=== PATIENT | female | born 1970 | race Asian ===

== ENCOUNTER → 2017-04-01 | Outpatient (CLI) | payer OTHER | LOC: CIMAGING 10:20 | PROVIDERS: ATTEND Obstetrics & Gynecology | DX: N88.8 Other specified noninflammatory disorders of cervix uteri (principal) | CPT/HCPCS: 76856-PO ==

== ENCOUNTER 2018-02-28 04:57 | Emergency (ER) | payer OTHER ==
--- NOTE | 2018-02-28 05:07 | EDPHY ---
H & P Source: Patient - Personal History Tetanus Vaccine Date: 01/03 - Medical/Surgical History Hx Asthma: No Hx Chronic Respiratory Disease: No Hx Diabetes: No Hx Cardiac Disease: No Hx Renal Disease: No Hx Cirrhosis: No Hx Alcoholism: No Hx HIV/AIDS: No Hx Splenectomy or Spleen Trauma: No Other PMH: Tonsillectomy age 3,Choleystasis of , IVF , Frequent Candiasis. - Family History Significant Family History: No pertinent family hx - Social History Smoking Status: Never smoked Alcohol Use: None Drug Use: None Time Seen by Provider: 02/28/18 05:06 HPI/ROS: CHIEF COMPLAINT: Epigastric spasms of pain radiating to the back. HISTORY OF PRESENT ILLNESS: Previously healthy 47-year-old female notes that she went to bed at 1:00 a.m.. She has had a bit of insomnia lay any that is why she went to bed so late. However nonetheless she did not feel quite well at the time. She noted a mild upper abdominal cramp and with some posterior back discomfort however, she was able to drift off to sleep after taking some melatonin. Next, she is awoke at 3:00 a.m. From a sound sleep with this sense of discomfort being markedly worse when she would characterizes the pain now at that point in time moderately severe. It would be equal in the front where it is feels more like a soft pain whereas in the back is more pressure feeling. It is like nothing she has ever had before. There was an associated alcaraz with nausea she vomited once or twice. There is no blood in the emesis. She also had a mild little bit of diarrhea of soft stool. Of note, no one else is ill. No bad foods. No recent travel outside the country last 2 months as well as no antibiotics. She does not drink alcohol The pain persisted aside taking some Pepto-Bismol with no relief. She recalls having a pain on March 2014 some 2 weeks at which time she did not have any back pain at that time. I reviewed the records from that ER visit and indeed she did have a negative of right upper quadrant ultrasound. REVIEW OF SYSTEMS: Constitutional: No fever, no chills. Eyes: No discharge and ENT: No sore throat. Cardiovascular: No chest pain, no palpitations. Respiratory: No cough, shortness of breath, or wheezing. Gastrointestinal: See above Genitourinary: No hematuria or frequency. Musculoskeletal: No back pain. Skin: No rashes. Neurological: No headache. A 10 system review of systems was performed and is negative except for the noted findings in the HPI. (Carl Garcia) - Physical Exam Exam: General Appearance: Alert, no distress. Afebrile. Normal phonation. No respiratory distress. Closes her eye is in pain as a spasm in [place] lasts for 10 sec. Eyes: Pupils equal and round no pallor or injection. No icterus ENT, Mouth: Mucous membranes slightly dry Pharynx without erythema or exudate. TM Clear. Neck: No adenopathy. Supple. No JVD. Trachea in midline. Respiratory: There are no retractions, lungs are clear to auscultation. Cardiovascular: Regular rate and rhythm. Abdomen: Soft though there is specific tenderness in the right upper quadrant with a Ji sign. There is diffuse tenderness to a mild degree in the left upper quadrant as well as left mid quadrant but even less so in the right mid quadrant. Neurological: Ox3. No motor weakness. Sensation intact. Gait nl. Skin: Warm and dry, no rashes. Musculoskeletal: No joint swelling. Extremities: No edema. Homans sign negative. No cords. Psychiatric: Normal affect. Patient is oriented X 3. There is no agitation ( Carl Garcia) Constitutional: Initial Vital Signs Temperature (C) 36.4 C 02/28/18 05:04 Heart Rate 66 02/28/18 05:04 Respiratory Rate 16 02/28/18 05:04 Blood Pressure 142/67 H 02/28/18 05:04 O2 Sat (%) 96 02/28/18 05:04 O2 Delivery Mode Room Air Allergies/Adverse Reactions: latex Allergy (Verified 02/28/18 05:56) Home Medications: Medication Instructions Recorded Dicyclomine [Bentyl 20 MG (*)] 20 mg PO QID PRN #30 tab 02/28/18 Medical Decision Making - Diagnostics Imaging Results: Imaging Impressions Abdomen Ultrasound 02/28/18 05:39 Impression: 1. Cholelithiasis and gallbladder sludge. No sonographic features to suggest acute cholecystitis. 2. Normal caliber common bile duct. No choledocholithiasis. 3. No free fluid. Findings discussed with Emergency Department physician, Batool Grimaldo MD on 02/28/2018 at 8:05 a.m. ED Course/Re-evaluation: I discussed with the patient pain management. Will go ahead with start with fentanyl 25 mcg IV as well as p.o. Bentyl 20 mg, as there is such as spasticity to this pain. In the interim ultrasound been called in and will be arriving at 7:00 a.m. For evaluation of the right upper quadrant. Laboratories are as follows: Urinalysis negative though specific gravity 1.030 Lactic acid 1.22 Renal function normal WBC normal LFT's normal Lipase pending Case discussed with the oncoming physician at 7:00 a.m. with respect to Patient' s disposition and results of the ultrasound, pending. (Carl Garcia) - Data Points Laboratory Results: 02/28/18 02/28/18 02/28/18 05:26 05:26 05:15 POC Blood Source VENOUS Patient Temperature 36.4 DEGREES DEGREES POC VBG pH 7.41 (7.31-7.42) POC VBG pCO2 36 mmHg L mmHg (40-44) POC VBG pO2 37 mmHg mmHg (35-40) POC VBG HCO3 23 mEq/L mEq/L (22-26) POC VBG Total CO2 24 mEq/L mEq/L (21-27) POC VBG Base Excess -2.0 mEq/L mEq/L (-2.5-2.5) POC Mix VBG O2 Sat 73 % % (65-75) POC Sodium 140 mEq/L mEq/L (135-145) POC Potassium 4.0 mEq/L mEq/L (3.3-5.0) POC Chloride 109.0 mEq/L mEq/L (97-110) POC Total CO2 25 mEq/L mEq/L (22-31) POC BUN 15 mg/dL mg/dL (7-23) POC Creatinine 0.9 mg/dL mg/dL (0.6-1.0) POC Glucose 110 mg/dL H mg/dL (70-100) POC Lactic Acid Mario Alberto 1.2 mmol/L mmol/L (0.7-2.1) POC Calcium 9.3 mg/dL mg/dL (8.5-10.4) POC Total Bilirubin 0.5 mg/dL mg/dL (0.1-1.4) POC AST 27 IU/L IU/L (14-46) POC ALT 20 IU/L IU/L (9-52) POC Alk Phosphatase 59 IU/L IU/L (38-126) POC Total Protein 7.0 g/dL g/dL (6.3-8.2) POC Albumin 3.3 g/dL L g/dL (3.5-5.0) Lipase 177 IU/L IU/L (23-300) Medications Given: Discontinued Medications Dicyclomine HCl (Bentyl) 20 mg PO EDNOW ONE Stop: 02/28/18 05:25 Last Admin: 02/28/18 05:33 Dose: 20 mg Fentanyl (Sublimaze) 25 mcg IVP EDNOW ONE Stop: 02/28/18 05:25 Last Admin: 02/28/18 05:34 Dose: 25 mcg Sodium Chloride (Ns) 1,000 mls @ 0 mls/hr IV EDNOW ONE; Wide Open PRN Reason: Protocol Stop: 02/28/18 05:23 Last Admin: 02/28/18 05:34 Dose: 1,000 mls Ondansetron HCl (Zofran) 4 mg IVP EDNOW ONE Stop: 02/28/18 05:23 Last Admin: 02/28/18 05:33 Dose: 4 mg Point of Care Test Results: CBC CBC Collection Date 02/28/18 CBC Collection Time 05:15 WBC 7.2 RBC 4.76 HGB 12.6 HCT 37.6 PLT 282 Neut # 4.5 Neut 63.2 LYMPH # 2.1 LYMPH 28.8 Other WBC # 0.6 Other WBC 8.0 MCV 79.0 Chemistry 02/28/18 05:26 POC Sodium 140 mEq/L mEq/L (135-145) POC Potassium 4.0 mEq/L mEq/L (3.3-5.0) POC Chloride 109.0 mEq/L mEq/L (97-110) POC Total CO2 25 mEq/L mEq/L (22-31) POC BUN 15 mg/dL mg/dL (7-23) POC Creatinine 0.9 mg/dL mg/dL (0.6-1.0) POC Glucose 110 mg/dL H mg/dL (70-100) POC Calcium 9.3 mg/dL mg/dL (8.5-10.4) POC Total Bilirubin 0.5 mg/dL mg/dL (0.1-1.4) POC AST 27 IU/L IU/L (14-46) POC ALT 20 IU/L IU/L (9-52) POC Alk Phosphatase 59 IU/L IU/L (38-126) POC Total Protein 7.0 g/dL g/dL (6.3-8.2) POC Albumin 3.3 g/dL L g/dL (3.5-5.0) Blood Gas/Lactic Acid-Arterial 02/28/18 05:26 POC Blood Source VENOUS Blood Gas/Lactic Acid-Venous 02/28/18 05:26 POC VBG pH 7.41 (7.31-7.42) POC VBG pCO2 36 mmHg L mmHg (40-44) POC VBG pO2 37 mmHg mmHg (35-40) POC VBG HCO3 23 mEq/L mEq/L (22-26) POC VBG Total CO2 24 mEq/L mEq/L (21-27) POC VBG Base Excess -2.0 mEq/L mEq/L (-2.5-2.5) POC Mix VBG O2 Sat 73 % % (65-75) POC Lactic Acid Mario Alberto 1.2 mmol/L mmol/L (0.7-2.1) Urine Dip Collection Date 02/28/18 Collection Time 05:38 Specific [place] (1.002-1.030) 1.030 PH (5.0-7.5) 6.0 Leukocytes (Negative) Negative Nitrites (Negative) Negative Protein (Negative) Negative Glucose (Negative) Negative Ketones (Negative) Negative Urobilnogen (0.2-1.0 EU) 0.2 Bilirubin (Negative) Negative Blood (Negative) Negative Departure - Departure Disposition: Home, Routine, Self-Care Clinical Impression: Cholelithiasis, Biliary colic Condition: Good Instructions: Biliary Colic (ED), Gallstones (ED), Laparoscopic Cholecystectomy (DC) Referrals: Shaquille Browning MD [Medical Doctor] - As per Instructions Prescriptions: Dicyclomine [Bentyl 20 MG (*)] 20 mg PO QID PRN #30 tab PRN Reason: Pain, Mild Able To Take Po
[2018-02-28] MEDS ORDERED: NS 1,000 ML IV ONE (05:22)
[2018-02-28] MEDS ORDERED: ONDANSETRON 4 MG/2 ML VIAL IVP ONE (05:22)
[2018-02-28] MEDS ORDERED: DICYCLOMINE 10 MG CAP PO ONE (05:24)
[2018-02-28] MEDS ORDERED: fentaNYL 100 MCG/2 ML INJ IVP ONE (05:24)
[2018-02-28 06:15] VITALS: BP 132/72
== END 2018-02-28 08:40 | disposition home or self-care (01) ==
LOC: CED 04:57
DX: K80.70 Calculus of gallbladder and bile duct without cholecystitis without obstruction (principal); E86.9 Volume depletion, unspecified
CPT/HCPCS: 76705-PO; 80053-PO; 83605-PO; 96374; J2405; J3010